=== PATIENT | male | born 1965 | race Asian ===

== ENCOUNTER → 2016-07-25 | Outpatient (CLI) | payer OTHER ==
[~2016-07-25] MED LIST: AMLO5 PO; CELE200C PO; LORA10TA7 PO; TOPR100T15 PO; ZOCO20TA PO
== END ==
LOC: HCAV 14:31
PROVIDERS: ATTEND Internal Medicine Interventional Cardiology
DX: R00.2 Palpitations (principal)
CPT/HCPCS: 93270

== ENCOUNTER → 2017-07-26 | Outpatient (CLI) | payer OTHER ==
[2017-07-26 10:46] LABS: ALKALINE PHOSPHATASE 56 U/L (45-117); CREATINE KINASE 157 U/L (39-308); TOTAL BILIRUBIN ADULT 0.4 MG/DL (0.2-1.0); TOTAL PROTEIN 8.1 GM/DL (6.4-8.2)
[2017-07-26 10:48] LABS: ALBUMIN 3.9 GM/DL (3.4-5.0); ALT (GPT) 28 U/L (12-78); AST (GOT) 28 U/L (15-37); DIRECT BILIRUBIN ADULT 0.1 MG/DL (0.0-0.2); INDIRECT BILIRUBIN 0.3 MG/DL (0.0-0.8)
== END ==
LOC: CLAB 09:48
DX: R74.0 Nonspecific elevation of levels of transaminase and lactic acid dehydrogenase [LDH] (principal); M84.375A Stress fracture, left foot, initial encounter for fracture
CPT/HCPCS: 36415; 80076; 82306; 82550